=== PATIENT | female | born 1930 | race Caucasian/White ===

== ENCOUNTER 2017-04-06 03:05 | Emergency (ER) | payer MEDICARE ==
[~2017-04-06] VITALS: Ht 152.4 cm; Wt 75.0 kg
[~2017-04-06 03:05] MED LIST: ACYCLOVIR400 MG PO; ALENDRONATE70 MG PO; AMLODIPINE BESYL5 MG PO; ASPIRIN CHEWABL81 MG PO; CALCIUM 500+D500 + PO; CRANBERRY PLUS VITA1 PO; DOCUSATE SOD100 M2 PO; FLUARIX QUADRIV1 IN1 IM; FLUARIX QUADRIV1 INJ IM; FLULAVAL IM; LISINOPRIL20 MG PO; LORTAB 7.5 PO; LORTAB 7.57.5 MG PO; LOVASTATIN10 MG PO; MEDDOSEPAK PO; METO50TA52 PO; METOPROL TAR50 MG PO; METOPROLOL TAR100 MG PO; METOPROLOL TART50 MG PO; MOTRIN800 MG/TAB PO; MULTIVITAM10 PO; OXYBUTYNIN5 M1 PO; TORADOL PO; TRAMADOL HCL50 MG PO; VALIUM2 MG PO; VICODIN1 TAB PO
[2017-04-06] MEDS ORDERED: ULTRAM50 M1 PO (06:03)
[2017-04-06 06:35] VITALS: BP 119/59
== END 2017-04-06 06:35 | disposition home or self-care (01) ==
LOC: ED 03:05
DX: S00.93XA Contusion of unspecified part of head, initial encounter (principal); S13.9XXA Sprain of joints and ligaments of unspecified parts of neck, initial encounter; S80.01XA Contusion of right knee, initial encounter; W06.XXXA Fall from bed, initial encounter; Y93.84 Activity, sleeping; Y92.003 Bedroom of unspecified non-institutional (private) residence as the place of occurrence of the external cause

== ENCOUNTER 2019-05-25 14:50 | Inpatient (IN) | payer MEDICARE ==
[~2019-05-25] VITALS: Ht 157.5 cm; Wt 70.0 kg
[~2019-05-25 14:50] MED LIST changes: +ULTRAM50 M1 PO
--- NOTE | 2019-05-25 15:15 | NUR ---
PT TRANSPORTED TO [facility] VIA ACCOMPIANED BY FAMILY. PT AMBULATED FROM TO BED W/ STANDBY ASSISTANCE. VS DONE. PT A/O X3. SPEECH IS CLEAR. RESP EVEN AND UNLABORED. LUNG SOUNDS COARSE. O2 @2L @ BEDSIDE. NONPRODUCTIVE COUGH NOTED. STRONG RADIAL AND PEDAL PULSES. BOWEL SOUNDS ACTIVE X4. PT C/O ARTHRITIS PAIN; 6 OUT OF 10 ON PAIN SCALE. ACHING PAIN TO SHOULDERS AND ARMS. REPOSITONED FOR COMFORT. SKIN INTACT. PT DENIES ANY FURTHER NEEDS. POC DISCUSSED. SAFETY PRECAUTIONS IN PLACE. CALL LIGHT IN REACH. WILL CONTINUE TO MONITOR.
[2019-05-25 15:33] VITALS: BP 167/74
[2019-05-25 15:36] VITALS: BP 134/65
[2019-05-25] MEDS ORDERED: TESSALON PER100 MG PO (16:44)
[2019-05-25] MEDS ORDERED: DITROPAN PO (16:46)
[2019-05-25] MEDS ORDERED: TRAMADOL HYDROC50 MG PO (16:47)
[2019-05-25] MEDS ORDERED: PAROXETINE10 M1 PO (16:48)
[2019-05-25 17:23] LABS: HEMATOCRIT 41.6 % (37.0-47.0); HEMOGLOBIN 13.6 g/dl (12.0-16.0); IMMATURE GRANULOCYTES 0.2 % (0.0-5.0); MEAN CORPUSCULAR HGB 30.1 pG CALC (26.0-32.0); MEAN CORPUSCULAR HGB CONC 32.7 g/L CALC (32.0-36.0); NEUT# 5.94 thou/uL (2.00-7.15); RED BLOOD COUNT 4.52 mill/uL (4.20-5.60); RED CELL DISTRI WIDTH 13.2 % (11.5-15.5)
--- NOTE | 2019-05-25 17:42 | NUR ---
PT EATING LUNCH. NO C/O PAIN OR NEEDS. CALL LIGHT IN REACH. WILL CONTINUE TO MONITOR.
[2019-05-25 18:26] LABS: URINE BILIRUBIN - DIPSTICK NEGATIVE (NEGATIVE); URINE BLOOD DIPSTICK NEGATIVE (NEGATIVE); URINE COLOR YELLOW; URINE GLUCOSE - DIPSTICK NEGATIVE (NEGATIVE); URINE KETONE NEGATIVE (NEGATIVE); URINE LEUK ESTERASE NEGATIVE (Negative); URINE NITRITE - DIPSTICK NEGATIVE (Negative); URINE PH 6.5 (4.5-8.0); URINE PROTEIN - DIPSTICK NEGATIVE (NEG-TRACE); URINE SPECIFIC GRAVITY 1.015; URINE UROBILINOGEN - DIPSTICK 0.2 E.U./dL (0.2)
[2019-05-25 18:27] LABS: URINE CLARITY CLEAR
--- NOTE | 2019-05-25 19:00 | NUR ---
RECEIVED REPORT FROM NURSE ERWIN, PATIENT RESTING IN BED, WATCHING TV AT THIS TIME, EVEN UNLABORED BREATHING CALL LIGHT AT REACH.
[2019-05-25 19:18] LABS: ANION GAP 15 (6-22 (CALC)); BUN 18 mg/dL (8-23); BUN/CREATININE RATIO 25 (12-20 (CALC)); CARBON DIOXIDE 31 mmol/l (22-30); CHLORIDE 99 mmol/l (95-108); CREATININE 0.7 mg/dL (0.5-1.0); GFR > 60 ML/MIN (>=60 (CALC)); GFR FOR AFR.AMER. > 60 ML/MIN (>=60 (CALC)); SODIUM 140 mmol/l (137-146)
[2019-05-25 19:25] VITALS: BP 157/71
--- NOTE | 2019-05-25 20:00 | NUR ---
PATIENT ALERT AND ORIENTED ABLE TO MAKE NEEDS KNOWN, CONTINENT OF BOWEL AND BLADDER, DENIES PAIN OR DISCOMFORTS AT THIS TIME, WITH EVEN UNLABORED BREATHING WITH AN ONGOING IV OF D5NS @75CC/HR INFUSING WELL ON RFA, PATIENT LA POSTA, ASSISTED TO BEDSIDE COMMODE, ASSISTED BACK IN BED.
[2019-05-26] VITALS (7 sets, daily range): BP systolic 123–160; BP diastolic 56–71
--- NOTE | 2019-05-26 00:10 | NUR ---
PATIENT CURRENTLY RESTING IN BED WITH EYES CLOSED NO DISCOMFORTS NOTED AT THIS TIME.CALL LIGHT AT REACH.
--- NOTE | 2019-05-26 01:20 | NUR ---
CALLED DR. GERONIMO AND RELAYED PATIENT'S BP AND ORDERED TO START HOME MEDICATIONS.
--- NOTE | 2019-05-26 04:38 | NUR ---
PATIENT RESTING IN BED WITH EYES CLOSED, WITH EVEN UNLABORED BREATHING CALL LIGHT AT REACH.
[2019-05-26 05:06] LABS: ALBUMIN 3.7 g/dL (3.2-5.0); ALKALINE PHOSPHATASE 70 u/l (38-126); ANION GAP 12 (6-22 (CALC)); BILIRUBIN, TOTAL 0.3 mg/dL (0.0-1.4); BUN 13 mg/dL (8-23); BUN/CREATININE RATIO 23 (12-20 (CALC)); CARBON DIOXIDE 29 mmol/l (22-30); CHLORIDE 103 mmol/l (95-108); CREATININE 0.6 mg/dL (0.5-1.0); GFR > 60 ML/MIN (>=60 (CALC)); GFR FOR AFR.AMER. > 60 ML/MIN (>=60 (CALC)); POTASSIUM 4.2 mmol/l (3.5-5.1); SGOT/AST 35 u/l (9-36); SODIUM 139 mmol/l (137-146); TOTAL PROTEIN 6.5 g/dL (6.3-8.2)
--- NOTE | 2019-05-26 07:05 | NUR ---
PT REPORT RECIEVED FROM JESUS MONZON. PT SLEEPING. NO S/S OF DISTRESS. CALL LIGHT IN REACH. WILL CONTINUE TO MONITOR.
--- NOTE | 2019-05-26 08:21 | NUR ---
PT A/O X3. SPEECH IS CLEAR. RESP EVEN AND UNLABORED. UPPER LOBES COARSE, LOWER LOBES DIMINISHED. O2 @2L @ BEDSIDE. NONPRODUCTIVE COUGH NOTED. BOWEL SOUNDS ACTIVE X4. STRONG RADIAL AND PEDAL PULSES. #22 RFA D5 NS @75. SITE APPEARS HEALTHY. SKIN INTACT. PT DENIES ANY PAIN OR NEEDS. POC DISCUSSED. SAFETY PRECAUTIONS IN PLACE. CALL LIGHT IN REACH. WILL CONTINUE TO MONITOR.
--- NOTE | 2019-05-26 08:22 | NUR ---
DR. GERONIMO IN TO SEE PT
--- NOTE | 2019-05-26 12:06 | NUR ---
PT EATING. NO C/O PAIN OR NEEDS. CALL LIGHT IN REACH. BSC NEAR BED. WILL CONTINUE TO MONITOR.
--- NOTE | 2019-05-26 16:18 | NUR ---
PT IN SHOWER; WEIGHER PACKING AT BEDSIDE. NO C/O PAIN OR NEEDS. CALL LIGHT IN REACH. WILL CONTINUE TO MONITOR.
--- NOTE | 2019-05-26 19:08 | NUR ---
PT IS IN BED AND APPEARS TO BE SLEEPING, DID NOT AWAKE TO OUR ENTERING ROOM. REPORT RECEIVED FROM DAY NURSE, NO S/O DISTRESS NOTED AT THIS TIME. CALL LIGHT IS AT SIDE.
--- NOTE | 2019-05-26 21:35 | NUR ---
PT MEDICATED ORDERS PROVIDE. PT IS ASKING ABOUT HER MED-REQ/SCHEDULE STATES THAT HER BP MEDICATIONS ARE NOT BEING RECEIVED SHE TAKES THEM AT HOME. SCHEDULE REVIEWED W/PT, WILL PASS INFORMATION PER MED-REQ TO PHYS/PHARMACY FOR SCHEDULING PURPOSES. PT ASSESSED, LUNG SOUNDS ARE CLEAR ANT/COURSE THROUGHOUT VISUAL MERCHANDISER. NO NOTED EDEMA, IVF ARE RUNNING PER ORDERS @75MLS/HR/SITE APPEARS HEALTHY 22 RFA. PT ASSISTED TO BSC AND BACK TO BED, 200CC OF CLEAR YELLOW URINE EMPTIED. POC DISCUSSED W/PT. PTS DINNER TRAY IS STILL AT BEDSIDE UNTOUCHED, I ASKED IF SHE WOULD LIKE TO EAT/AGREED AND TRAY WAS WARMED FOR PT. DENIES ANY OTHER NEEDS AT THIS TIME. DOOR CLOSED/REQUEST, LIGHTS AND TV ARE ON, PT UPRIGHT IN BED EATING W/CALL LIGHT AT SIDE.
--- NOTE | 2019-05-26 22:25 | NUR ---
PT CALLED FOR ASSISTANCE TO BSC AND BACK TO BED. COMMODE EMPTIED OF 200CC CLEAR YELLOW URINE. PT TOLERATED WELL USING WALKER. PT IS WEARING BRIEFS BROUGHT FROM HOME FOR STRESS INCONTINENCE. DINNER TRAY REMOVED/25% EATEN. PT REPORTED NOT HAVING MUCH APPETITE. DENIED ANY OTHER NEEDS, ASKED FOR LIGHTS AND TV TO BE LEFT ON.
--- NOTE | 2019-05-27 01:00 | NUR ---
PT IS SLEEPING SOUNDLY AT THIS TIME. DID NOT AWAKE TO MY ENTERING THE ROOM. IVF RUNNING ORDERS PROVIDE. CALL LIGHT AT SIDE.
--- NOTE | 2019-05-27 03:32 | NUR ---
PT IS SLEEPING AT THIS TIME. LIGHT AND TV ARE ON. NO S/O DISTRESS NOTED, PT IS SNORING SOFTLY. CALL LIGHT AT BEDSIDE.
[2019-05-27 04:05] VITALS: BP 150/69
[2019-05-27 04:43] LABS: HEMATOCRIT 38.6 % (37.0-47.0); HEMOGLOBIN 12.5 g/dl (12.0-16.0); IMMATURE GRANULOCYTES 0.4 % (0.0-5.0); MEAN CELL VOLUME 92.3 fL CALC (80.0-100.0); MEAN CORPUSCULAR HGB 29.9 pG CALC (26.0-32.0); MEAN CORPUSCULAR HGB CONC 32.4 g/L CALC (32.0-36.0); NEUT# 4.7 thou/uL (2.00-7.15); RED BLOOD COUNT 4.18 mill/uL (4.20-5.60); RED CELL DISTRI WIDTH 13.3 % (11.5-15.5)
[2019-05-27 05:02] LABS: ALBUMIN 3.8 g/dL (3.2-5.0); ALKALINE PHOSPHATASE 70 u/l (38-126); ANION GAP 13 (6-22 (CALC)); BILIRUBIN, TOTAL 0.3 mg/dL (0.0-1.4); BUN 9 mg/dL (8-23); BUN/CREATININE RATIO 19 (12-20 (CALC)); CARBON DIOXIDE 27 mmol/l (22-30); CHLORIDE 103 mmol/l (95-108); CREATININE 0.5 mg/dL (0.5-1.0); GFR > 60 ML/MIN (>=60 (CALC)); GFR FOR AFR.AMER. > 60 ML/MIN (>=60 (CALC)); POTASSIUM 4.4 mmol/l (3.5-5.1); SGOT/AST 37 u/l (9-36); SODIUM 139 mmol/l (137-146); TOTAL PROTEIN 6.7 g/dL (6.3-8.2)
--- NOTE | 2019-05-27 06:33 | NUR ---
IVF DISCONNECTED, PT OFF THE FLOOR FOR XRAY/ORDERS VIA WC ACCOMPANIED BY AIDE.
--- NOTE | 2019-05-27 06:44 | NUR ---
PT RETURNED TO THE FLOOR FROM XRAY. PT APPEARS TO BE IN STABLE CONDITION AT THIS TIME.
--- NOTE | 2019-05-27 07:00 | NUR ---
REPORT RECEIVED FROM JESUS HATCH;PT AMBULATING TO RECLINER WITH ASSISTANCE FROM DEBBIE SMILEY;INTRODUCED SELF TO PT AND POC DISCUSSED;PT DENIES ANY CURRENT PAIN OR DISCOMFORTS;RESPIRATIONS EVEN AND UNLABORED ON RA;IV FLUIDS INFUSING TO RFA WITH EASE;PT ENCOURAGED TO CALL FOR ASSISTANCE IF NEEDED;FALL PRECAUTIONS IN PLACE WITH CALL LIGHT IN REACH;WILL CONTINUE TO MONITOR
[2019-05-27 07:49] VITALS: BP 166/81
--- NOTE | 2019-05-27 07:50 | NUR ---
PT OOB RESTING IN RECLINER, A&O X4;VS OBTAINED AND ASSESSMENT COMPLETED;PT DENIES ANY CURRENT PAIN OR DISCOMFORTS,PAIN SCALE AND REPORTING EDUCATED;RESPIRATIONS EVEN AND UNLABORED ON RA WITH COARSE/DIMINISHED LUNG SOUNDS,NON -PRODUCTIVE COUGH NOTED AT TIMES;ABDOMEN SOFT ON PALPATION AND ACTIVE IN ALL 4 QUADRANTS;STRONG PEDAL PULSES;SKIN INTACT;#22G TO RFA INFUSING D5 1/2 NS @ 75ML/HR PER ORDER,SITE APPEARS HEALTHY;PT DENIES ANY ADDITIONAL NEEDS AT THIS TIME AND IS ENCOURAGED TO CALL FOR ASSISTANCE IF NEEDED;FALL PRECAUTIONS IN PLACE WITH CALL LIGHT IN REACH;WILL CONTINUE TO MONITOR
--- NOTE | 2019-05-27 08:40 | NUR ---
AT BEDSIDE DISCUSSING POC.
--- NOTE | 2019-05-27 11:30 | NUR ---
PT APPEARS TO BE SLEEPING IN SUPINE POSITION;RESPIRATIONS REMAIN EVEN AND UNLABORED ON RA;NO S/S OF DISTRESS NOTED;IV FLUIDS INFUSING TO RFA WITH EASE;ASSESSMENT REMAINS UNCHANGED;ALL SAFETY PRECAUTIONS IN PLACE WITH BED IN THE LOWEST POSITION AND CALL LIGHT IN REACH;WILL CONTINUE TO MONITOR
[2019-05-27 15:16] VITALS: BP 130/66
--- NOTE | 2019-05-27 15:40 | NUR ---
PT APPEARS TO BE SLEEPING IN SUPINE POSITION;RESPIRATIONS APPEAR EVEN AND UNLABORED ON RA;NO S/S OF DISTRESS NOTED;IV FLUIDS CONTINUE TO INFUSE TO RIGHT FOREARM WITH EASE;ALL SAFETY PRECAUTIONS IN PLACE WITH BED IN THE LOWEST POSITION AND CALL LIGHT IN REACH;WILL CONTINUE TO MONITOR
[2019-05-27 20:00] VITALS: BP 126/68
--- NOTE | 2019-05-27 20:52 | NUR ---
PT MEDICATED ORDERS PROVIDE AND ASSESSED AT THIS TIME. LUNG SOUNDS IMPROVED/CLEAR THROUGHOUT, PT WAS COUGHING WHEN I ENTERED THE ROOM, BUT SHE REFUSED HER ROBITUSSIN STATING SHE DOESN'T THINK IT HELPED. PT C/O BURNING FEELING IN HER STOMACH, DINNER TRAY IS AT BEDSIDE, I ENCOURAGED HER TO EAT OFFERING TO WARM HER TRAY FOR HER EDUCATING HER ON THE ANTIBIOTICS PO, SHE STATED SHE MAY EAT LATER TO LEAVE THE TRAY, BUT DID NOT WANT IT WARMED AT THIS TIME. PT REQUESTED PRUNE JUICE/STOOL 1X LAST NIGHT REPORTED, PRUNE JUICE PROVIDED. CALL LIGHT IS AT BEDSIDE AND PT ENOCURATGED TO CALL NEEDS ARISE.
--- NOTE | 2019-05-28 01:38 | NUR ---
PT SLEEPING SOUNDLY AT THIS TIME. NO S/O DISTRESS NOTED AT THIS TIME. CALL LIGHT AT SIDE.
--- NOTE | 2019-05-28 04:10 | NUR ---
IVF REPLACED, LAB IS IN W/PT AT THIS TIME. NO S/O DISTRESS NOTED.
[2019-05-28 05:06] VITALS: BP 150/75
[2019-05-28 05:07] LABS: IMMATURE GRANULOCYTES 0.3 % (0.0-5.0); MEAN CORPUSCULAR HGB 29.9 pG CALC (26.0-32.0); MEAN CORPUSCULAR HGB CONC 32.4 g/L CALC (32.0-36.0); NEUT# 5.09 thou/uL (2.00-7.15); RED BLOOD COUNT 4.02 mill/uL (4.20-5.60); RED CELL DISTRI WIDTH 13.2 % (11.5-15.5)
[2019-05-28 05:27] LABS: ANION GAP 11 (6-22 (CALC)); BUN 6 mg/dL (8-23); BUN/CREATININE RATIO 16 (12-20 (CALC)); CARBON DIOXIDE 26 mmol/l (22-30); CHLORIDE 104 mmol/l (95-108); CREATININE 0.4 mg/dL (0.5-1.0); GFR > 60 ML/MIN (>=60 (CALC)); GFR FOR AFR.AMER. > 60 ML/MIN (>=60 (CALC)); POTASSIUM 4.4 mmol/l (3.5-5.1); SODIUM 136 mmol/l (137-146)
--- NOTE | 2019-05-28 07:00 | NUR ---
PT REPORT RECIEVED FROM JESUS HATCH. PT RESTING. NO S/S OF DISTRESS. CALL LIGHT IN REACH. WILL CONTINUE TO MONITOR.
[2019-05-28 07:32] VITALS: BP 156/84
--- NOTE | 2019-05-28 07:32 | NUR ---
PT A/O X3. SPEECH IS CLEAR. RESP EVEN AND UNLABORED. LUNG SOUNDS CLEAR. BOWEL SOUNDS ACTIVE X4. STRONG RADIAL AND PEDAL PULSES. #22 RFA D5 NS @75. SITE APPEARS HEALTHY. SKIN INTACT. PT DENIES ANY PAIN BUT DOES HAVE A UPSET STOMACH. DISCUSSED W/ PT I WILL LET MD KNOW. PT STATES UNDERSTANDING. NO FUTHER NEEDS AT THIS TIME. POC DISCUSSED. SAFETY PRECAUTIONS IN PLACE. CALL LIGHT IN REACH. WILL CONTINUE TO MONITOR.
--- NOTE | 2019-05-28 10:43 | NUR ---
Entered pt. room with pt. seated in semi fowlers position, staes she is feeling a little sick but agreed to participate in therapy. Supine to sit(min A), sit to stand (Min A) VC for safety precautions with correct hand placement. Gait training 75 feet (CGA), VC for increased foot clearence during swing pahase, slight LOB as pt. begins to accelerate. Stand to sit (CGA) VC for correct hand placement as she descends to a seated position. Sit to supine (SBA). Tray table and call salmeron left by patient bedside within pt. reach.
--- NOTE | 2019-05-28 14:55 | NUR ---
PT SLEEPING. NO C/O PAIN OR NEEDS. CALL LIGHT IN REACH. WILL CONTINUE TO MONITOR.
--- NOTE | 2019-05-28 15:51 | NUR ---
PT TALKING W/ FRIEND. NO C/O PAIN OR NEEDS. IV FLUIDS INFUSING. CALL LIGHT IN REACH. WILL CONTINUE TO MONITOR.
[2019-05-28 15:55] VITALS: BP 133/63
[2019-05-28 18:47] VITALS: BP 127/54
--- NOTE | 2019-05-28 20:01 | NUR ---
PT IS IN RECLINER W/FEET ELEVATED TALKING ON PHONE. IVF ARE RUNNING, PT DENIED ANY NEEDS AT THIS TIME AND CONTINUED TALKING ON CELLPHONE. TV IS ON AND CALL LIGHT IS W/IN REACH.
--- NOTE | 2019-05-28 21:15 | NUR ---
PT MEDICATED ORDERS PROVIDE. PT STILL SITTING IN RECLINER. SHE DENIED ANY DISCOMFORT AND REPORTED NO MORE N/V AND STATED THAT SHE WAS ABLE TO EAT HER DINNER W/OUT ANY ISSUES. PT RECEIVED PHONE CALL/TAKEN. WILL FOLLOW-UP. CALL LIGHT AT SIDE.
--- NOTE | 2019-05-29 00:32 | NUR ---
PT SLEEPING, NO S/O DISTRESS AT THIS TIME. CALL LIGHT IS AT BEDSIDE. WILL CONTINUE TO MONITOR.
--- NOTE | 2019-05-29 02:45 | NUR ---
PT ASSISTED TO RESTROOM AND BACK TO BED. PT TOLERATED AMBULATING WELL USING WALKER, STABLE ON FEET. PT ENCOURAGED TO CALL IF ANY OTHER NEEDS ARISE.
[2019-05-29 04:35] VITALS: BP 132/66
--- NOTE | 2019-05-29 04:35 | NUR ---
PT V/S ASSESSED, SHE WAS SLEEPING SOUNDLY I ENTERED ROOM, BUT AWOKE TO MY VOICE. NO S/O DISTRESS, PT DENIES ANY OTHER NEEDS AT THIS TIME. CALL LIGHT AT SIDE.
--- NOTE | 2019-05-29 05:49 | NUR ---
IVF REPLENISHED, RESPIRATORY IN W/PT PROVIDING DUO-NEB TREATMENT.
--- NOTE | 2019-05-29 07:00 | NUR ---
PT REPORT RECIEVED FROM JESUS HATCH. PT WATCHING TV. NO S/S OF DISTRESS. CALL LIGHT IN REACH. WILL CONTINUE TO MONITOR.
[2019-05-29 07:32] VITALS: BP 125/60
--- NOTE | 2019-05-29 07:32 | NUR ---
PT A/O X3. SPEECH IS CLEAR. RESP EVEN AND UNLABORED. LUNG SOUNDS CLEAR. BOWEL SOUNDS ACTIVE X4. STRONG RADIAL AND PEDAL PULSES. #22 RFA D5 NS @75. SITE APPEARS HEALTHY. SKIN INTACT. PT DENIES ANY PAIN OR NEEDS. POC DISCUSSED. SAFETY PRECAUTIONS IN PLACE. CALL LIGHT IN REACH. WILL CONTINUE TO MONITOR.
--- NOTE | 2019-05-29 08:34 | NUR ---
ASSISTED PT W/ AMBULATION DOWN THE HALLS. PT TOLERATED WELL. WALKER USED FOR ASSISTANCE.
--- NOTE | 2019-05-29 12:39 | NUR ---
PT SLEEPING. NO C/O PAIN OR NEEDS. CALL LIGHT IN REACH. WILL CONTINUE TO MONITOR.
--- NOTE | 2019-05-29 16:05 | NUR ---
PT WATCHING TELEVISION. NO C/O PAIN OR NEEDS. CALL LIGHT IN REACH. WILL CONTINUE TO MONITOR.
--- NOTE | 2019-05-29 18:50 | NUR ---
SBAR received from Michele CHAPMAN. Patient in bed watching television. Denies pain at this time. No concerns expressed. Call light within reach.
[2019-05-29 19:00] VITALS: BP 148/67
--- NOTE | 2019-05-29 23:00 | NUR ---
Resting quietly, eyes closed. Respirations even unlabored, no distress noted. Call light within reach.
--- NOTE | 2019-05-30 02:51 | NUR ---
1 person assist with assistive device to restroom. clear, yellow urine. tolerated well, no distress noted. assisted back to bed without difficulty. bedrails up x2, bed in low position, call light within reach. instructed to call for assistance, verbalizes understanding
[2019-05-30 04:04] VITALS: BP 131/55
[2019-05-30 05:22] LABS: HEMATOCRIT 33.3 % (37.0-47.0); HEMOGLOBIN 10.9 g/dl (12.0-16.0); IMMATURE GRANULOCYTES 0.4 % (0.0-5.0); MEAN CELL VOLUME 91.7 fL CALC (80.0-100.0); MEAN CORPUSCULAR HGB CONC 32.7 g/L CALC (32.0-36.0); NEUT# 6.54 thou/uL (2.00-7.15); RED BLOOD COUNT 3.63 mill/uL (4.20-5.60); RED CELL DISTRI WIDTH 13.1 % (11.5-15.5)
[2019-05-30 05:25] LABS: ANION GAP 9 (6-22 (CALC)); BUN 8 mg/dL (8-23); BUN/CREATININE RATIO 18 (12-20 (CALC)); CARBON DIOXIDE 28 mmol/l (22-30); CHLORIDE 102 mmol/l (95-108); CREATININE 0.4 mg/dL (0.5-1.0); GFR > 60 ML/MIN (>=60 (CALC)); GFR FOR AFR.AMER. > 60 ML/MIN (>=60 (CALC)); SODIUM 135 mmol/l (137-146)
[2019-05-30 05:30] LABS: POTASSIUM 3.5 mmol/l (3.5-5.1)
--- NOTE | 2019-05-30 06:45 | NUR ---
PT REPORT RECIEVED FROM ADELA ROBERT. PT RESTING. NO S/S OF DISTRESS. CALL LIGHT IN REACH. WILL CONTINUE TO MONITOR.
--- NOTE | 2019-05-30 06:52 | NUR ---
SBAR report given to Debbi CHAPMAN
[2019-05-30 07:06] VITALS: BP 142/73
[2019-05-30 07:07] VITALS: BP 142/73
--- NOTE | 2019-05-30 07:10 | NUR ---
PT A/O X3. SPEECH IS CLEAR. RESP EVEN AND UNLABORED. LUNG SOUNDS CLEAR. BOWEL SOUNDS ACTIVE X4. STRONG RADIAL AND PEDAL PULSES. #22 RFA SL. FLUSHED AND PATENT. SITE APPEARS HEALTHY. SKIN NTACT. PT DENIES ANY PAIN OR NEEDS. POC DISCUSSED. SAFETY PRECAUTIONS IN PLACE. CALL LIGHT IN REACH. WILL CONTINUE TO MONITOR.
--- NOTE | 2019-05-30 09:43 | NUR ---
D/C INSTRUCTIONS DISCUSSED W/ PT. PT STATES UNDERSTANDING. IV REMOVED. CATHETER INTACT. PT GETTING DRESSED W/ ASSISTANCE OF DEBIBE MCKEON.
--- NOTE | 2019-05-30 10:53 | NUR ---
Discharge instructions given. Patient verbalizes understanding of same. Discharged in stable condition via Wheelchair to Home with family. All belongings sent with pt.
== END 2019-05-30 10:45 | DRG 203 ==
LOC: MS2 14:50
PROVIDERS: ADMIT Internal Medicine Geriatric Medicine; ATTEND Internal Medicine Geriatric Medicine
DX: J40 Bronchitis, not specified as acute or chronic (principal); I25.10 Atherosclerotic heart disease of native coronary artery without angina pectoris; I10 Essential (primary) hypertension; M47.812 Spondylosis without myelopathy or radiculopathy, cervical region; R54 Age-related physical debility; M25.511 Pain in right shoulder; Z86.73 Personal history of transient ischemic attack (TIA), and cerebral infarction without residual deficits

== ENCOUNTER 2019-11-11 11:14 | Inpatient (IN) | payer MEDICARE ==
[~2019-11-11] VITALS: Ht 157.5 cm; Wt 93.2 kg
[~2019-11-11 11:14] MED LIST changes: +DITROPAN PO; +PAROXETINE10 M1 PO; +TESSALON PER100 MG PO; +TRAMADOL HYDROC50 MG PO
[2019-11-11 12:54] LABS: HEMOGLOBIN 12.1 g/dl (12.0-16.0); IMMATURE GRANULOCYTES 0.9 % (0.0-5.0); MEAN CELL VOLUME 93.1 fL CALC (80.0-100.0); MEAN CORPUSCULAR HGB 29.7 pG CALC (26.0-32.0); MEAN CORPUSCULAR HGB CONC 31.8 g/L CALC (32.0-36.0); NEUT# 9.86 thou/uL (2.00-7.15); RED BLOOD COUNT 4.08 mill/uL (4.20-5.60); RED CELL DISTRI WIDTH 12.8 % (11.5-15.5)
[2019-11-11 13:30] LABS: ALBUMIN 4.1 g/dL (3.2-5.0); ANION GAP 15 (6-22 (CALC)); BILIRUBIN, TOTAL 0.5 mg/dL (0.0-1.4); BUN 15 mg/dL (8-23); BUN/CREATININE RATIO 31 (12-20 (CALC)); CARBON DIOXIDE 30 mmol/l (22-30); CHLORIDE 92 mmol/l (95-108); CREATININE 0.5 mg/dL (0.5-1.0); GFR > 60 ML/MIN (>=60 (CALC)); GFR FOR AFR.AMER. > 60 ML/MIN (>=60 (CALC)); POTASSIUM 3.9 mmol/l (3.5-5.1); SGOT/AST 61 u/l (9-36); SODIUM 134 mmol/l (137-146)
[2019-11-11 13:32] LABS: ALKALINE PHOSPHATASE 125 u/l (38-126)
[2019-11-11 14:33] LABS: URINE BILIRUBIN - DIPSTICK NEGATIVE (NEGATIVE); URINE BLOOD DIPSTICK TRACE-LYSED (NEGATIVE); URINE COLOR YELLOW; URINE GLUCOSE - DIPSTICK NEGATIVE (NEGATIVE); URINE KETONE NEGATIVE (NEGATIVE); URINE LEUK ESTERASE NEGATIVE (NEGATIVE); URINE NITRITE - DIPSTICK NEGATIVE (Negative); URINE PH 6.5 (4.5-8.0); URINE PROTEIN - DIPSTICK NEGATIVE (NEG-TRACE); URINE SPECIFIC GRAVITY <=1.005; URINE UROBILINOGEN - DIPSTICK 0.2 E.U./dL (0.2)
[2019-11-11 19:52] VITALS: BP 145/77
[2019-11-11 23:35] VITALS: BP 136/70
[2019-11-12 03:45] VITALS: BP 117/61
[2019-11-12 07:18] VITALS: BP 146/76
[2019-11-12 11:25] VITALS: BP 123/66
[2019-11-12 15:15] VITALS: BP 141/71
[2019-11-12 18:55] VITALS: BP 135/69
[2019-11-13] VITALS (7 sets, daily range): BP systolic 110–150; BP diastolic 53–80
[2019-11-13 07:12] LABS: HEMATOCRIT 34.8 % (37.0-47.0); HEMOGLOBIN 11.2 g/dl (12.0-16.0); MEAN CELL VOLUME 93.5 fL CALC (80.0-100.0); MEAN CORPUSCULAR HGB 30.1 pG CALC (26.0-32.0); MEAN CORPUSCULAR HGB CONC 32.2 g/L CALC (32.0-36.0); RED BLOOD COUNT 3.72 mill/uL (4.20-5.60)
[2019-11-13 07:22] LABS: ANION GAP 8 (6-22 (CALC)); BUN 22 mg/dL (8-23); BUN/CREATININE RATIO 47 (12-20 (CALC)); CARBON DIOXIDE 32 mmol/l (22-30); CREATININE 0.5 mg/dL (0.5-1.0); GFR > 60 ML/MIN (>=60 (CALC)); GFR FOR AFR.AMER. > 60 ML/MIN (>=60 (CALC)); POTASSIUM 3.7 mmol/l (3.5-5.1); SODIUM 140 mmol/l (137-146)
[2019-11-13 07:42] LABS: CHLORIDE 104 mmol/l (95-108)
[2019-11-14 04:47] VITALS: BP 131/68
[2019-11-14 08:26] VITALS: BP 142/79
[2019-11-14 11:10] VITALS: BP 142/79
[2019-11-14 17:00] VITALS: BP 135/67
[2019-11-14 19:39] VITALS: BP 138/65
[2019-11-14 23:52] VITALS: BP 154/74
[2019-11-15 04:30] VITALS: BP 150/72
[2019-11-15 05:37] LABS: HEMATOCRIT 39.8 % (37.0-47.0); HEMOGLOBIN 12.6 g/dl (12.0-16.0); MEAN CELL VOLUME 94.3 fL CALC (80.0-100.0); MEAN CORPUSCULAR HGB 29.9 pG CALC (26.0-32.0); MEAN CORPUSCULAR HGB CONC 31.7 g/L CALC (32.0-36.0); RED BLOOD COUNT 4.22 mill/uL (4.20-5.60)
[2019-11-15 05:47] LABS: ALKALINE PHOSPHATASE 88 u/l (38-126); BUN 23 mg/dL (8-23); BUN/CREATININE RATIO 45 (12-20 (CALC)); CARBON DIOXIDE 36 mmol/l (22-30); CHLORIDE 99 mmol/l (95-108); CREATININE 0.5 mg/dL (0.5-1.0); GFR > 60 ML/MIN (>=60 (CALC)); GFR FOR AFR.AMER. > 60 ML/MIN (>=60 (CALC)); SGOT/AST 59 u/l (9-36); SODIUM 138 mmol/l (137-146)
[2019-11-15 05:49] LABS: ALBUMIN 3.1 g/dL (3.2-5.0); ANION GAP 9 (6-22 (CALC)); BILIRUBIN, TOTAL 0.2 mg/dL (0.0-1.4); POTASSIUM 5.6 mmol/l (3.5-5.1); TOTAL PROTEIN 6.1 g/dL (6.3-8.2)
[2019-11-15 09:44] VITALS: BP 146/73
[2019-11-15 11:37] VITALS: BP 154/71
[2019-11-15] MEDS ORDERED: PREDNISONE10 MG PO ×2 (12:34)
[2019-11-15] MEDS ORDERED: VANTIN200 M1 PO (12:37)
== END 2019-11-15 15:42 | DRG 194 ==
LOC: ED 11:14 → ED-I 13:50 → ED 14:07 → ED-I 14:08 → MS2 18:41
PROVIDERS: Family Medicine; Nurse Practitioner Family; ADMIT Internal Medicine; ATTEND Internal Medicine
DX: J18.9 Pneumonia, unspecified organism (principal); J44.0 Chronic obstructive pulmonary disease with (acute) lower respiratory infection; I10 Essential (primary) hypertension; E78.5 Hyperlipidemia, unspecified; M19.90 Unspecified osteoarthritis, unspecified site; Z86.73 Personal history of transient ischemic attack (TIA), and cerebral infarction without residual deficits; Z77.22 Contact with and (suspected) exposure to environmental tobacco smoke (acute) (chronic); Z60.2 Problems related to living alone
CPT/HCPCS: G0378

== ENCOUNTER 2020-06-21 19:20 | Inpatient (IN) | payer MEDICARE ==
[~2020-06-21] VITALS: Ht 157.5 cm; Wt 69.9 kg
[~2020-06-21 19:20] MED LIST changes: +PREDNISONE10 MG PO; +VANTIN200 M1 PO
[2020-06-21] MEDS ORDERED: FUROSEMIDE20 MG PO (19:49)
[2020-06-21] MEDS ORDERED: CALCIUM/D3600 MG PO (19:51)
[2020-06-21] MEDS ORDERED: CRANBERRY PLUS VITA1 PO (19:52)
[2020-06-21] MEDS ORDERED: PROBIOTI2 PO (19:54)
[2020-06-21] MEDS ORDERED: TYLENOL 8 HOUR650 MG PO (19:55)
[2020-06-21 19:57] LABS: IMMATURE GRANULOCYTES 0.5 % (0.0-5.0); MEAN CORPUSCULAR HGB 29.6 pG CALC (26.0-32.0); MEAN CORPUSCULAR HGB CONC 31.4 g/dL CAL (32.0-36.0); NEUT# 12.37 thou/uL (2.00-7.15); RED BLOOD COUNT 3.18 mill/uL (4.20-5.60); RED CELL DISTRI WIDTH 13.3 % (11.5-15.5)
[2020-06-21 19:58] LABS: URINE BILIRUBIN - DIPSTICK NEGATIVE (NEGATIVE); URINE BLOOD DIPSTICK NEGATIVE (NEGATIVE); URINE COLOR YELLOW; URINE GLUCOSE - DIPSTICK NEGATIVE (NEGATIVE); URINE KETONE NEGATIVE (NEGATIVE); URINE LEUK ESTERASE NEGATIVE (NEGATIVE); URINE NITRITE - DIPSTICK NEGATIVE (Negative); URINE PROTEIN - DIPSTICK NEGATIVE (NEG-TRACE); URINE SPECIFIC GRAVITY >=1.030; URINE UROBILINOGEN - DIPSTICK 0.2 E.U./dL (0.2)
[2020-06-21 19:59] LABS: HEMATOCRIT 29.9 % (37.0-47.0); HEMOGLOBIN 9.4 g/dl (12.0-16.0)
[2020-06-21 21:04] LABS: ALKALINE PHOSPHATASE 86 u/l (38-126); BUN 25 mg/dL (8-23); BUN/CREATININE RATIO 41 (12-20 (CALC)); CHLORIDE 98 mmol/l (95-108); CREATININE 0.6 mg/dL (0.5-1.0); GFR > 60 ML/MIN (>=60 (CALC)); GFR FOR AFR.AMER. > 60 ML/MIN (>=60 (CALC)); LIPASE 104 u/l (23-300); SGOT/AST 35 u/l (9-36); SODIUM 136 mmol/l (137-146)
[2020-06-21 21:05] LABS: ACT PARTIAL THROMBO TIME 23.1 SECONDS (20.0-32.5); INTERNATIONAL NORMALIZED RATIO 1.1 RATIO (0.7-1.3); PROTHROMBIN TIME 10.5 SECONDS (9.0-12.5)
[2020-06-21 21:13] LABS: ALBUMIN 4.4 g/dL (3.2-5.0); ANION GAP 14 (6-22 (CALC)); BILIRUBIN, TOTAL 0.4 mg/dL (0.0-1.4); CARBON DIOXIDE 28 mmol/l (22-30); TOTAL PROTEIN 7.7 g/dL (6.3-8.2)
[2020-06-21 21:17] LABS: MYOGLOBIN 46 ng/mL (0 - 62)
[2020-06-21 23:20] VITALS: BP 157/78
[2020-06-22 04:30] VITALS: BP 142/69
[2020-06-22 11:23] LABS: HEMOGLOBIN 11.1 g/dl (12.0-16.0); IMMATURE GRANULOCYTES 0.3 % (0.0-5.0); MEAN CELL VOLUME 94.2 fL CALC (80.0-100.0); MEAN CORPUSCULAR HGB 29.1 pG CALC (26.0-32.0); MEAN CORPUSCULAR HGB CONC 30.9 g/dL CAL (32.0-36.0); NEUT# 9.34 thou/uL (2.00-7.15); RED BLOOD COUNT 3.81 mill/uL (4.20-5.60); RED CELL DISTRI WIDTH 13.2 % (11.5-15.5)
[2020-06-22 11:49] LABS: HEMATOCRIT 35.9 % (37.0-47.0)
[2020-06-22 12:01] LABS: ALBUMIN 3.6 g/dL (3.2-5.0); ALKALINE PHOSPHATASE 61 u/l (38-126); ANION GAP 9 (6-22 (CALC)); BUN 19 mg/dL (8-23); BUN/CREATININE RATIO 36 (12-20 (CALC)); CARBON DIOXIDE 30 mmol/l (22-30); CHLORIDE 100 mmol/l (95-108); CREATININE 0.5 mg/dL (0.5-1.0); GFR > 60 ML/MIN (>=60 (CALC)); GFR FOR AFR.AMER. > 60 ML/MIN (>=60 (CALC)); SGOT/AST 32 u/l (9-36); SODIUM 135 mmol/l (137-146)
[2020-06-22 12:02] LABS: BILIRUBIN, TOTAL 0.2 mg/dL (0.0-1.4); TOTAL PROTEIN 5.9 g/dL (6.3-8.2)
[2020-06-22 17:00] VITALS: BP 128/63
[2020-06-22 19:00] VITALS: BP 154/74
[2020-06-23 04:13] VITALS: BP 140/58
[2020-06-23 07:45] VITALS: BP 170/85
[2020-06-23 09:26] LABS: CHOLESTEROL HDL RATIO 2.6 (<4.4 (CALC))
[2020-06-23] MEDS ORDERED: HYDROCO/APAP1 TA9 PO (15:48)
[2020-06-23 16:00] VITALS: BP 158/78
[2020-06-23 18:35] VITALS: BP 164/76
[2020-06-24 04:20] VITALS: BP 151/71
[2020-06-24 09:25] VITALS: BP 183/93
[2020-06-24 09:40] VITALS: BP 183/93
[2020-06-24] MEDS ORDERED: ATORVASTATIN CA40 MG PO (11:13)
== END 2020-06-24 13:05 | disposition hospice, home (50) | DRG 66 ==
LOC: ED 19:20 → ED-I 21:43 → ED 21:54 → MS2 21:54 → ED-I 21:54 → MS2 22:30
PROVIDERS: Family Medicine; Nurse Practitioner Family; ADMIT Internal Medicine; ATTEND Internal Medicine
DX: I63.89 Other cerebral infarction (principal); R29.701 NIHSS score 1; I10 Essential (primary) hypertension; E86.0 Dehydration; E78.5 Hyperlipidemia, unspecified; Z66 Do not resuscitate; Z51.5 Encounter for palliative care; Z86.73 Personal history of transient ischemic attack (TIA), and cerebral infarction without residual deficits; Z20.828 Contact with and (suspected) exposure to other viral communicable diseases
CPT/HCPCS: G0378; J1650; Q9967